=== PATIENT | female | born 2000 | race Caucasian/White ===

== ENCOUNTER 2022-08-27 10:30 | Outpatient (CLI) | payer SELFPAY ==
[2022-08-27 19:33] LABS: HIV 1/2/P24 Combo Screen* Negative (Negative)
[2022-08-27 19:40] LABS: Hepatitis C Virus Antibody* Negative (Negative)
[2022-08-27 20:20] LABS: Chlamydia DNA Amplified* NOT DETECTED (No Detected); GC DNA Amplified* NOT DETECTED (No Detected)
[2022-08-29 12:55] LABS: Rapid Plasma Reagin (RPR) Non Reactive (Non Reactive)
== END 2022-08-27 10:31 | disposition home or self-care (01) ==
PROVIDERS: PCP Internal Medicine Addiction Medicine; Visit Provider Internal Medicine Addiction Medicine
DX: F11.10 Opioid abuse, uncomplicated (principal); Z11.3 Encounter for screening for infections with a predominantly sexual mode of transmission
CPT/HCPCS: 86592; 86703; 86803; 87491; 87591